=== PATIENT | male | born 1975 | race African-American/Black ===

== ENCOUNTER 2019-06-09 22:23 | Emergency (ER) | payer SELFPAY ==
[~2019-06-09] VITALS: Ht 175.3 cm; Wt 95.3 kg
[2019-06-09 23:50] VITALS: BP 140/90
[2019-06-10] MEDS ORDERED: AMOX875T PO (00:31)
[2019-06-10] MEDS ORDERED: HYDR-3164 PO (00:31)
[2019-06-10] MEDS ORDERED: NAPR500T8 PO (00:31)
--- NOTE | 2019-06-10 00:31 | PHYS DOC ---
Past Medical History Past Medical History: No Pertinent History Past Surgical History: No Surgical History Alcohol Use: None Drug Use: Marijuana Adult General Chief Complaint Chief Complaint: DENTAL PROBLEM HPI HPI Patient is a 44 year old male patient who presents to the ED today with right lower gum dental swelling that he noted this morning. Patient denies any fever or trismus. He states he plans to see a dentist but he doesn't have insurance and believes this will take longer. Review of Systems Review of Systems Constitutional: Denies fever or chills [] HENT: Reports right lower gum dental swelling. Denies nasal congestion or sore throat [] Musculoskeletal: Denies back pain or joint pain [] Integument: Denies rash or skin lesions [] Neurologic: Denies headache, focal weakness or sensory changes [] All other systems were reviewed and found to be within normal limits, except as documented in this note. Physical Exam Physical Exam Constitutional: Well developed, well nourished, no acute distress, non-toxic claudia earance. [] HENT: Normocephalic, atraumatic, bilateral external ears normal, oropharynx moist, no oral exudates, nose normal. [] Right lower cheek swelling noted, there is an obvious dental abscess on the right lower gum around missing tooth #29. There is no gum erythema, no fluctuance. Skin: Warm, dry, no erythema, no rash. [] Back: No tenderness, no CVA tenderness. [] Extremities: No tenderness, no cyanosis, no clubbing, ROM intact, no edema. [] Neurologic: Alert and oriented X 3, normal motor function, normal sensory funct ion, no focal deficits noted. [] Psychologic: Affect normal, judgement normal, mood normal. [] Current Patient Data Vital Signs Vital Signs Date Time Temp Pulse Resp B/P (MAP) Pulse Ox O2 Delivery O2 Flow Rate FiO2 06/09/19 23:50 99.0 68 16 140/90 (107) 100 Room Air 99.0 EKG EKG [] Radiology/Procedures Radiology/Procedures [] Course & Med Decision Making Course & Med Decision Making Pertinent Labs and Imaging studies reviewed. (See chart for details) Patient has a dental abscess. Discharged with amoxicillin for 10 days. Follow-up with her dentist. Ethan Disclaimer Draggarcía Disclaimer This electronic medical record was generated, in whole or in part, using a voice recognition dictation system. Departure Departure Impression: Primary Impression: Abscess, dental Disposition: HOME, SELF-CARE Condition: STABLE Referrals: NO PCP (PCP) Follow up with a dentist as soon as possible Patient Instructions: Dental Abscess Additional Instructions: You were seen for dental abscess. Complete the prescribed antibiotics and follow-up with a dentist as soon as possible. Take the prescribed pain medicine as needed for pain. Scripts Naproxen (NAPROXEN) 500 Mg Tablet.dr 1 TAB PO BID, #20 TAB 0 Refills Prov: NATALIIA BEAR APRN 06/10/19 Amoxicillin (AMOXICILLIN) 875 Mg Tablet 1 TAB PO BID, #20 TAB Prov: NATALIIA BEAR APRN 06/10/19 Hydrocodone/Apap 5-325 (NORCO 5-325 TABLET) 1 Each Tablet 1 TAB PO Q6HRS, #10 TAB Prov: NATALIIA BEAR APRN 06/10/19 NATALIIA BEAR APRN Jun 10, 2019 00:31
[2019-06-10] MEDS ORDERED: IBUPROFEN 200 MG TABLET. PO ONE (01:00)
[2019-06-10] MEDS ORDERED: HYDROcodone/APAP 5/325MG 1 TAB TABLET PO ONE (01:00)
[2019-06-10] MEDS ORDERED: AMOXICILLIN 250 MG CAPSULE. PO ONE (01:00)
== END 2019-06-10 00:55 | disposition home or self-care (01) ==
LOC: ER 22:23
DX: K04.7 Periapical abscess without sinus (principal)
CPT/HCPCS: 99284